=== PATIENT | male | born 1995 | race Caucasian/White ===

== ENCOUNTER → 2017-08-29 | Outpatient (CLI) | payer BC ==
[~2017-08-29] MED LIST: AMOX-355 PO; HYDR-3729 PO; PRD20T PO
--- NOTE | 2017-08-29 12:53 | Diagnostic Imaging Report ---
PROCEDURE: CT sinuses without contrast TECHNIQUE: Multiple contiguous axial images were obtained through the sinuses without the use of intravenous contrast. Coronal and sagittal reformations were then performed. INDICATION: Nasal polyps. COMPARISON: CT sinuses without contrast 05/05/2014. FINDINGS: Since the prior exam, there has been progression of paranasal sinus disease with complete opacification of the right maxillary sinus, new since the prior exam. There is near-complete opacification of the left maxillary sinus. Overall stable marked mucosal thickening in the ethmoid sinuses. There has been mild improvement of the mucosal thickening in the frontal sinuses. Hyperattenuating contents of the maxillary and ethmoid sinuses consistent with chronic inspissated contents. The frontal recesses and ostiomeatal units are completely occluded. Sphenoid sinuses are clear. Mild bowing of the nasal septum towards the right. The mastoids and middle ears are clear. IMPRESSION: Interval progression of the chronic diffuse paranasal sinus disease described above. Dictated by: Dictated on workstation # [id number]
== END ==
LOC: RAD 12:10
PROVIDERS: ATTEND Nurse Practitioner Family
DX: J32.8 Other chronic sinusitis (principal); J34.89 Other specified disorders of nose and nasal sinuses; J33.9 Nasal polyp, unspecified
CPT/HCPCS: 70486

== ENCOUNTER 2017-10-12 05:32 | Outpatient (CLI) | payer BC ==
[~2017-10-12] VITALS: Ht 177.8 cm; Wt 90.7 kg
[2017-10-12] MEDS ORDERED: FLUT12AE4 IH (12:25)
== END 2017-10-12 12:30 ==
LOC: PREOP 05:32
PROVIDERS: ATTEND Otolaryngology Otolaryngology/Facial Plastic Surgery
DX: Z01.818 Encounter for other preprocedural examination (principal); J33.9 Nasal polyp, unspecified; J32.9 Chronic sinusitis, unspecified

== ENCOUNTER 2017-10-19 06:04 | Day surgery (SDC) | payer BC ==
[~2017-10-19] VITALS: Ht 177.8 cm; Wt 90.7 kg
[~2017-10-19 06:04] MED LIST changes: +FLUT12AE4 IH
[2017-10-19] MEDS ORDERED: LACTATED RINGERS 1,000 ML IV PRN (06:16)
[2017-10-19] MEDS ORDERED: HYDROCORTISONE 100 MG/2 ML (Solu-CORTEF) VIAL IV ONE (06:30)
[2017-10-19] MEDS ORDERED: AMPICILLIN/SULBACTAM INJECTION 1.5 GM in NS (IVPB) 100 ML IV ONE (06:30)
[2017-10-19] MEDS ORDERED: MIDAZOLAM 2 MG/2 ML (VERSED) VIAL ONE (06:34)
[2017-10-19] MEDS ORDERED: ROCURONIUM 10 MG/ML 5 ML SYRINGE IV ONE (06:34)
[2017-10-19] MEDS ORDERED: SEVOFLURANE (ULTANE) 15 ML INHAL SOLN ONE ×5 (06:34→08:06)
[2017-10-19] MEDS ORDERED: proPOfol 200 MG/20 ML (DIPRIVAN) VIAL IV ONE ×2 (06:34→08:35)
[2017-10-19] MEDS ORDERED: LIDOCAINE PF 2% 5 ML (XYLOCAINE) VIAL ONE (06:34)
[2017-10-19] MEDS ORDERED: fentaNYL INJECTION 100 MCG/2 ML AMP ONE (06:34)
[2017-10-19] MEDS ORDERED: DEXAMETHASONE 10 MG/ML (DECADRON) 1 ML VIAL ONE ×2 (06:34→07:50)
[2017-10-19] MEDS ORDERED: ONDANSETRON 4 MG/2 ML (SDV) Z0FRAN ONE ×2 (06:34→07:49)
[2017-10-19 06:43] LABS: BASOPHILS % (AUTO) 1 % (0-10); EOSINOPHILS # (AUTO) 0.3 10^3/uL (0.0-0.3); EOSINOPHILS % (AUTO) 6 % (0-10); HEMATOCRIT 44 % (40-54); HEMOGLOBIN 15.9 G/DL (13.3-17.7); LYMPHOCYTES # (AUTO) 1.4 X 10^3 (1.0-4.0); LYMPHOCYTES % (AUTO) 24 % (12-44); MEAN CORPUSCULAR HEMOGLOBIN 34 PG (25-34); MEAN CORPUSCULAR HGB CONC 36 G/DL (32-36); MEAN CORPUSCULAR VOLUME 93 FL (80-99); MEAN PLATELET VOLUME 9.5 FL (7.4-10.4); MONOCYTES # (AUTO) 0.9 X 10^3 (0.0-1.0); MONOCYTES % (AUTO) 15 % (0-12); NEUTROPHILS # (AUTO) 3.1 X 10^3 (1.8-7.8); NEUTROPHILS % (AUTO) 55 % (42-75); PLATELET COUNT 290 10^3/uL (130-400); RED BLOOD COUNT 4.69 10^6/uL (4.35-5.85); RED CELL DISTRIBUTION WIDTH 12.9 % (10.0-14.5); WHITE BLOOD COUNT 5.7 10^3/uL (4.3-11.0)
[2017-10-19] MEDS ORDERED: CATHETER FLUSH 10 ML SYR IV PRN (06:45)
[2017-10-19] MEDS ORDERED: BSS 15 ML ONE (06:47)
[2017-10-19] MEDS ORDERED: COCAINE HCL 4% 2 ML SYR ONE (06:48)
[2017-10-19] MEDS ORDERED: PHENYLEPHRINE 0.5% NASAL SPR (NEO-SYNEPHRINE) REG ONE (06:48)
[2017-10-19] MEDS ORDERED: LIDOCAINE/EPI 1%-1:200,000 (XYLOCAINE) 10 ML VIAL ONE ×3 (06:48→07:38)
--- NOTE | 2017-10-19 06:55 | Progress Note-Pre Operative ---
Pre-Operative Progress Note H&P Reviewed The H&P was reviewed, patient examined and no changes noted. Date Seen by Provider: Oct 19, 2017 Time Seen by Provider: 06: Date H&P Reviewed: Oct 19, 2017 Time H&P Reviewed: : Pre-Operative Diagnosis: Bilat Chronic Sinusitis, Bilateral Nasal Polyps CHRISTINE NEVAREZ MD Oct 19, 2017 6:55 am
[2017-10-19] MEDS ORDERED: FLUT9.9S NS (06:59)
[2017-10-19 07:00] VITALS: BP 137/97
[2017-10-19 07:07] LABS: BUN/CREATININE RATIO 16; CALCIUM 9.2 MG/DL (8.5-10.1); CARBON DIOXIDE 25 MMOL/L (21-32); CHLORIDE 106 MMOL/L (98-107); CREATININE SERUM 0.82 MG/DL (0.60-1.30); GFR ESTIMATED > 60; GLUCOSE 91 MG/DL (70-105); POTASSIUM 3.4 MMOL/L (3.6-5.0); SODIUM 141 MMOL/L (135-145)
[2017-10-19] MEDS ORDERED: morphine INJ 10 MG/ML 1ML (SYR OR VIAL) ONE (07:49)
[2017-10-19] MEDS ORDERED: D5 1/2 NS W/KCL 20 MEQ/L 1,000 ML IV SCH (08:25)
--- NOTE | 2017-10-19 08:25 | Progress Note-Post Operative ---
Post-Operative Progess Note Surgeon (s)/Oxygen Plant Operator (s) Surgeon CHRISTINE NEVAREZ MD Oxygen Plant Operator n/a Pre-Operative Diagnosis Bilat Chronic Sinusitis, Bilateral Nasal Polyps Post-Operative Diagnosis same Post-Op Procedure Note Date of Procedure: Oct 19, 2017 Name of Procedure Performed: Bilat Revision ESS, Bilat Red of Inf Turbs Description & Findings Description and Findings: n/a Anesthesia Type get Estimated Blood Loss minimal Packing none. Specimen(s) collected/removed Bilat polyps/chronic sinus disease CHRISTINE NEVAREZ MD Oct 19, 2017 8:25 am
[2017-10-19] MEDS ORDERED: predniSONE 20 MG TAB PO ONE (08:30)
[2017-10-19] MEDS ORDERED: ACETAMINOPHEN 325 MG TABLET PO PRN (08:30)
[2017-10-19] MEDS ORDERED: PROMETHAZINE INJ 25 MG/ML (PHENERGAN) AMP IVP PRN (08:30)
[2017-10-19] MEDS ORDERED: HYDROcodone/APAP 5 MG/325 MG (LORTAB) TAB PO PRN (08:30)
[2017-10-19] MEDS ORDERED: NEOSTIGMINE 1 MG/ML 5 ML SYRINGE ONE (08:36)
[2017-10-19] MEDS ORDERED: GLYCOPYRROLATE 0.2 MG/ML (ROBINUL) 2 ML VIAL ONE (08:36)
[2017-10-19] MEDS ORDERED: fentaNYL INJECTION 100 MCG/2 ML AMP IVP PRN (08:45)
[2017-10-19] MEDS ORDERED: HYDROmorphone 2 MG/ML VIAL (DILAUDID) IVP PRN (08:45)
[2017-10-19 09:25] VITALS: BP 139/97
[2017-10-19] MEDS ORDERED: PRD20T PO (09:41)
[2017-10-19] MEDS ORDERED: HYDR-3812 PO (09:41)
[2017-10-19] MEDS ORDERED: AMOX-355 PO (09:41)
[2017-10-19 09:55] VITALS: BP 136/94
[2017-10-19 10:25] VITALS: BP 134/83
[2017-10-19 11:25] VITALS: BP 134/83
--- NOTE | 2017-10-19 11:32 | Anesthesia-General Post-Op ---
General Patient Condition Mental Status/LOC: Same as Preop Cardiovascular: Satisfactory Nausea/Vomiting: Absent Respiratory: Satisfactory Pain: Controlled Complications: Absent Post Op Complications Complications None Follow Up Care/Instructions Patient Instructions None needed. Anesthesia/Patient Condition Patient Condition Patient is doing well, no complaints, stable vital signs, no apparent adverse anesthesia problems. No complications reported per nursing. AGNES AGUDELO CRNA Oct 19, 2017 11:31
== END 2017-10-19 11:25 | disposition home or self-care (01) ==
LOC: SDC 06:04
PROVIDERS: ATTEND Otolaryngology Otolaryngology/Facial Plastic Surgery
DX: J32.2 Chronic ethmoidal sinusitis (principal); J32.0 Chronic maxillary sinusitis; J32.1 Chronic frontal sinusitis; J34.3 Hypertrophy of nasal turbinates
CPT/HCPCS: 36415; 80048; 85025; 87081; 88305